=== PATIENT | female | born 1990 | race Caucasian/White ===

== ENCOUNTER → 2020-06-08 15:34 | Outpatient (CLI) | payer MEDICAID, SELFPAY ==
[2020-06-08 16:09] LABS: Basophils % 0.3 % (0.1-2.0); Eosinophils # 0.3 K/mm3 (0.0-0.4); Eosinophils % 2.3 % (0.1-12.0); Hematocrit 32.1 % (37.0-47.0); Hemoglobin 10.8 g/dL (12.2-16.2); Lymphocytes # 3.2 K/mm3 (0.7-4.5); Lymphocytes % 26.4 % (10-50); Mean Corpuscular HGB Conc 33.7 g/dL (31.8-35.4); Mean Corpuscular Hemoglobin 26.6 pg (27.0-31.2); Mean Corpuscular Volume 78.9 fl (81-99); Mean Platelet Volume 8.4 fl (7.4-10.4); Monocytes # 0.7 K/mm3 (0.1-1.0); Neutrophils # 7.8 K/mm3 (1.8-7.8); Platelet Count 336 K/mm3 (142-424); Red Blood Count 4.07 M/mm3 (4.20-5.40); Red Cell Distribution Width 13.2 % (11.5-17.5)
[2020-06-10 13:50] LABS: HIV Screen 4th Generation wRfx Non Reactive (Non Reactive); Hepatitis B Surface Antigen Negative (Negative); Hepatitis C Antibody <0.1 s/co ratio (0.0-0.9); Rapid Plasma Reagin Ab Titer Non Reactive (NonRea<1:1); Rubella Antibodies, IgG <0.90 index (Immune >0.99)
== END ==
PROVIDERS: Visit Provider Obstetrics & Gynecology
DX: Z34.90 Encounter for supervision of normal pregnancy, unspecified, unspecified trimester (principal)
CPT/HCPCS: 36415; 85025; 86592; 86703; 86762; 86850; 87340; 87380; G0432

== ENCOUNTER → 2020-06-11 12:53 | Outpatient (CLI) | payer MEDICAID, SELFPAY ==
--- NOTE | 2020-06-11 12:54 | US_ITS ---
PROCEDURE: US OB /MATERNAL DETAIL CLINICAL INDICATION: COMPARISON: No exams were available for comparison FINDINGS: There is a single live fetus present which is in cephalic presentation. The cervix is closed and measures 6 cm transabdominal. Placenta is anterior and grade 2. heart body motion noted. Complete survey performed and was unremarkable on the submitted images as in PACS. No discrete anomalies identified on survey imaging by technologist. Active fetus. Three-vessel cord with satisfactory umbilical cord insertion. 4- chamber heart noted. Survey of brain & ventricles Unremarkable. Face and neck survey unremarkable. Diaphragm and chest views unremarkable. Abdomen: Both kidneys noted and unremarkable. Stomach noted and satisfactory. Spine: Survey of the spine satisfactory with no anomalies identified nor imaged. Both arms and legs noted. Amniotic Fluid: Adequate. Maternal adnexa: No significant findings. Measurements: Average ultrasound age 33weeks 1day. Gestational Age 33weeks 1day Estimated due date by ultrasound age 1207/29/2020. Estimated weight 2,172g BPD = 32weeks 4days OFD = 35weeks 2days HC = 33weeks 5days AC = 34weeks 1day FL = 32weeks 1day Growth Percentile= % Heart Rate = 165bpm Cerebellum = Humerus = 31weeks 3days HC/AC is 1 CI is 0.74 FL/BPD is 0.76 FL/AC is 0.2 IMPRESSION: Live IUP in cephalic presentation. Average ultrasound age 33 weeks 1 day. No obvious anomalies. Please see above for detail. Dictated by: Ritesh Fernández MD 06/12/2020 10:55 Ritesh Fernández MD in OV 06/12/2020 10:55
== END ==
PROVIDERS: PCP Family Medicine; Visit Provider Obstetrics & Gynecology
DX: Z34.90 Encounter for supervision of normal pregnancy, unspecified, unspecified trimester (principal)
CPT/HCPCS: 76811

== ENCOUNTER 2020-07-15 21:13 | Inpatient (IN) | payer BC, MEDICAID, SELFPAY ==
[2020-07-15 19:30] VITALS: BP 131/69; PULSE 96; RESP 18; TEMP 36.7; O2SAT 98; BMI 26.6
[2020-07-15 19:32] VITALS: BMI 26.6
[2020-07-15 19:44] LABS: Microscopic, Urine URINE MICROSCOPIC (MICROSCOPIC)
[2020-07-15 19:45] LABS: Appearance,Urine CLEAR (Clear); Bilirubin,Urine Negative (Negative); Blood, Urine Negative (Negative); Color,Urine YELLOW (Yellow); Glucose,Urine (UA) Negative (Negative); Ketones,Urine Negative (Negative); Leukocyte Esterase,Urine Negative (Negative); Nitrate,Urine Negative (Negative); PH,Urine 5.5 (5.0-8.5); Protein,Urine Negative (Negative); Specific Gravity, Urine <= 1.005 (1.005-1.030); Urobilinogen,Urine 0.2 EU/dl (0.2)
[2020-07-15 19:57] LABS: Amphetamine/Metha Screen,Urine Negative ng/ml (<1000)
[2020-07-15 19:58] LABS: Barbiturates Screen,Urine Negative ng/ml (<200)
[2020-07-15 19:59] LABS: Benzodiazepines Screen,Urine Negative ng/ml (<200); Cannabinoid Screen,Urine Negative ng/ml (<50)
[2020-07-15 20:00] LABS: Cocaine Screen,Urine Negative ng/ml (<300); Methadone Screen,Urine Negative ng/ml (<300)
[2020-07-15 20:01] LABS: Phencyclidine Screen,Urine Negative ng/ml (<25)
[2020-07-15 20:02] LABS: Opiate Screen,Urine Negative ng/ml (<300)
[2020-07-15 22:08] LABS: Basophils % 0.3 % (0.1-2.0); Eosinophils # 0.2 K/mm3 (0.0-0.4); Eosinophils % 1.8 % (0.1-12.0); Hematocrit 33.3 % (37.0-47.0); Hemoglobin 10.8 g/dL (12.2-16.2); Lymphocytes # 3.4 K/mm3 (0.7-4.5); Lymphocytes % 26.7 % (10-50); Mean Corpuscular HGB Conc 32.4 g/dL (31.8-35.4); Mean Corpuscular Hemoglobin 24.9 pg (27.0-31.2); Mean Corpuscular Volume 76.8 fl (81-99); Mean Platelet Volume 9.4 fl (7.4-10.4); Monocytes # 0.6 K/mm3 (0.1-1.0); Monocytes % 4.8 % (1.7-9.3); Neutrophils # 8.5 K/mm3 (1.8-7.8); Neutrophils % 66.3 % (37.0-80.0); Platelet Count 346 K/mm3 (142-424); Red Blood Count 4.33 M/mm3 (4.20-5.40); Red Cell Distribution Width 13.8 % (11.5-17.5); White Blood Count 12.8 K/mm3 (4.8-10.8)
[2020-07-15 23:00] LABS: Coronavirus 19 IgG Antibody Negative (Negative); Coronavirus 19 IgM Antibody Negative (Negative)
[2020-07-16 08:13] VITALS: BP 120/65; PULSE 86; RESP 18; TEMP 36.7; O2SAT 99
--- NOTE | 2020-07-16 10:03 | HMH.OBAPHP ---
OB - H&P: HPI Antepartum - History of Present Illness Chief complaint: contractions History of present illness: 30 yo @ 38 08/20 Admitted for observation of contractions, with eventual progress from 1cm to 3cm Now admitted in labor with pitocin augmentation care limited to 2 office visits, with late initial presentation at 33 wks Has not been seen in office for many weeks, and therefore GBS status unknown Will treat with prophylactic antibiotics during labor Social work consult following delivery MMR vaccine following delivery - History of Present Criteria for establishing EDC:: based on 3rd trimester US only care: limited care - Labs Blood type: A (+) positive Rubella: nonimmune RPR/VDRL: nonreactive GBS status: unknown HBsAG: negative [facility] History I have reviewed the patient's past medical history: Yes *Have you ever received a pneumonia vaccine?: No *Have you received a flu vaccine this season?: No Other Surgeries: Yes: Dilation and Curettage. No: Amputation: No Fractures: No - *Social History Smoking Status: Current every day smoker # Packs/Day (cigarettes): 1 Alcohol Intake: never Substance Use Type: denies use *Occupational Status:: unemployed *Travel in the last 8 weeks: None Family Hx:: Cancer, Diabetes, Heart Attack, Hypertension, Hyperlipidemia, Stroke : 9 Para: 5 LMP comments: Review of Systems - Review of Systems Review of systems:: pertinent systems reviewed and negative unless documented below - *Genitourinary Reports other (contractions) Meds Home Medications Medication Instructions Recorded Confirmed Type pediatric multivitamin no.76 1 tab PO DAILY 06/08/20 07/16/20 History Allergies Allergy/AdvReac Type Severity Reaction Status Date / Time hydromorphone [From Dilaudid] Allergy Mild hives Verified 06/22/20 15:06 OB - H&P: Exam - Physical Exam Vital signs: Temp Pulse Resp BP Pulse Ox 97.9 F 64 18 131/68 99 07/16/20 12:06 07/16/20 12:06 07/16/20 12:06 07/16/20 12:06 07/16/20 08:13 - Constitutional no acute distress - Routine HEENT Exam Head: Present: normocephalic, atraumatic Eye: Absent: scleral injection ENT: Present: mucous membranes moist - Routine Neck Exam Present: supple - Routine Respiratory Exam Present: CTA bilaterally. Absent: respiratory distress - Routine Cardiovascular Exam Present: RRR - Routine Abdominal Exam Present: soft. Absent: tenderness, distended - Routine Exam Comments: cervix 3/75/-2 - Routine Extremities Exam Absent: edema - Routine Skin Exam Absent: rash - Routine Neurological Exam Present: alert, oriented X3 - Routine Psychiatric Exam Present: normal affect OB - Results - Labs Labs: Short CBC 07/15/20 Range/Units 21:34 WBC 12.8 H (4.8-10.8) K/mm3 Hgb 10.8 L (12.2-16.2) g/dL Hct 33.3 L (37.0-47.0) % Plt Count 346 (142-424) K/mm3 Urine 07/15/20 Range/Units 19:15 Urine Color Yellow (Yellow) Urine Appearance Clear (Clear) Urine pH 5.5 (5.0-8.5) Ur Specific [place] <= 1.005 (1.005-1.030) Urine Protein Negative (Negative) Urine Glucose (UA) Negative (Negative) - Imaging and Cardiology nst Status: image reviewed by me (baseline 140, normal variability, reactive. Category 1.) OB - A/P Antepartum (1) 38 weeks gestation of Status: Acute (2) Late care Status: Acute (3) Grand multiparity Status: Acute (4) Insufficient care Status: Acute (5) Active labor at term Status: Acute (6) Anemia complicating Status: Acute (7) Rubella non-immune status, antepartum Status: Acute (8) Tobacco smoking complicating Status: Acute (9) GBS screening not performed Status: Acute - Additional Plan Additional Information:: Admitted with diagnosis of active labor
[2020-07-16 12:06] VITALS: BP 131/68; PULSE 64; RESP 18; TEMP 36.6
--- NOTE | 2020-07-16 13:20 | HMH.LABNOT ---
Labor Note - Subjective: Date: 07/16/20 Time: 13:20 regular contraction - Objective: Cervical Dilation:: 3-4 Effacement:: 75% Station: -1 Membranes: artificially ruptured Comment:: AROM--clear fluid FSE placed without difficulty or complication - Fetus: monitoring type:: Internal - Assessment: Patient Problems: All Active Problems Grand multiparity (Acute) GBS screening not performed (Acute) Insufficient care (Acute) 38 weeks gestation of (Acute) Active labor at term (Acute) Anemia complicating (Acute) Rubella non-immune status, antepartum (Acute) ASCUS with positive high risk HPV (Acute) Late care (Acute) Tobacco smoking complicating (Acute) (Acute) - Plan: Comment:: Continue pitocin augmentation Epidural requested and will be placed soon continuous monitoring
--- NOTE | 2020-07-16 13:34 | P.PN_ITS ---
[facility] Anesthesia Checklist - Patient Identification Patient Identification: Arm Band - Structural Data Admitted From: Inpatient Planned Operative Procedure/s: labor epidural Consent for Planned Operative Procedure(s) Verified: Yes Verified Documents: Surgical Consent, History and Physical - NPO Status Verified Time NPO: 00:00 - Additional verifications Anesthesia Reactions: No - Airway Assessment C-Spine Mobility Assessed: Yes TMJ Mobility Assessed: Yes Dentition: Good Dentition - Neurological Assessment Level of Consciousness: Awake, Alert - Anesthesia Plan Anesthesia Risk discussed: Yes Anesthesia Plan: Verified ASA Class: II Anesthesia Type: Epidural [facility] History I have reviewed the patient's past medical history: Yes *Have you ever received a pneumonia vaccine?: No *Have you received a flu vaccine this season?: No Anesthesia experience/problems:: nac Other Surgeries: Yes: Dilation and Curettage. No: Amputation: No Fractures: No - *Social History Smoking Status: Current every day smoker # Packs/Day (cigarettes): 1 Alcohol Intake: never Substance Use Type: denies use *Occupational Status:: unemployed *Travel in the last 8 weeks: None Family Hx:: Cancer, Diabetes, Heart Attack, Hypertension, Hyperlipidemia, Stroke Para: 5 LMP comments:
[2020-07-16 15:59] VITALS: BP 129/59; PULSE 60; RESP 16; TEMP 36.7; O2SAT 98
--- NOTE | 2020-07-16 18:39 | HMH.DN ---
- Delivery Note Delivery Date:: 07/16/20 Delivery Time:: 17:02 Anesthesia Type: Epidural Was labor medically induced?: No Infant delivered prior to 39 weeks?: Yes Justification for early elective delivery:: Active Labor at 1 minute: 8 at 5 minutes: 9 Delivery Procedure:: Spontaneous vaginal delivery of liveborn female over intact perineum. Delivery uncomplicated No nuchal cord; no shoulder dystocia with delivery placed in NICOLASA with mother immediately after umbilical cord clamped/cut, with standard nursing assessment performed Apgars: 8 & 9 Placenta spontaneously expressed and examined; noted to be complete/intact. Vulva, vagina, and cervix inspected; no lacerations EBL: 200 cc All sponge/needle/instrument counts correct at conclusion of procedure Disposition: Mom/baby stable to recovery in LDRP Placental Delivery Description: Spontaneous
[2020-07-17 07:11] LABS: Hematocrit 31.1 % (37.0-47.0); Hemoglobin 9.9 g/dL (12.2-16.2)
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
--- NOTE | 2020-07-17 13:39 | P.PN_ITS ---
Internal Medicine - PN: Subj *Date: 07/17/20 *Time: 17:39 Interval history: PPD #1 No unusual complaints Tolerating regular diet Ambulating and voiding without difficulty Lochia less than menses Exam Vital signs and Labs for Last 24 Hours: Temp Pulse Resp BP Pulse Ox 98.1 F 60 16 129/59 L 98 07/16/20 15:59 07/16/20 15:59 07/16/20 15:59 07/16/20 15:59 07/16/20 15:59 Laboratory Results - last 24 hr 07/17/20 06:33: Hgb 9.9 L, Hct 31.1 L I & O for Last 24 hours: Intake & Output 07/15/20 07/16/20 07/17/20 07/18/20 11:59 11:59 11:59 11:59 Weight 165 lb Narrative: CONSTITUTIONAL: no acute distress HEENT: mucous membranes moist PULMONARY: breathing unlabored without audible wheezes CV: no tachycardia or visible JVD; normal LE peripheral pulses ABD: soft, NT/ND, no guarding : fundus firm at/below umbilicus SKIN: no visible rash or lesions EXT: 1+ edema LEs NEURO: alert/oriented, no altered mental status PSYCH: appropriate mood and demeanor without visible anxiety/depression Assessment and Plan (1) 38 weeks gestation of Status: Acute Category: Medical Code(s): Z3A.38 - 38 weeks gestation of (2) Late care Status: Acute Category: Medical Code(s): O09.30 - Supervision of with insufficient care, unspecified trimester (3) Grand multiparity Status: Acute Category: Medical Code(s): Z64.1 - Problems related to multiparity (4) Insufficient care Status: Acute Category: Medical Code(s): O09.30 - Supervision of with insufficient care, unspecified trimester (5) Active labor at term Status: Acute Category: Medical (6) Anemia complicating Status: Acute Category: Medical Code(s): O99.019 - Anemia complicating pr egnancy, unspecified trimester (7) Rubella non-immune status, antepartum Status: Acute Category: Medical Code(s): O99.891 - Other specified diseases and conditions complicating ; Z28.3 - Underimmunization status (8) Tobacco smoking complicating Status: Acute Category: Medical Code(s): O99.330 - Smoking (tobacco) complicating , unspecified trimester (9) GBS screening not performed Status: Acute Category: Medical - Assessment and plan all Dx Assessment and Plan for all problems:: Routine care Anticipate discharge home tomorrow
[2020-07-17 20:15] VITALS: BP 126/71; PULSE 83; RESP 16; TEMP 36.7; O2SAT 98
[2020-07-17 23:59] VITALS: BP 109/61; PULSE 68; RESP 16; TEMP 36.7; O2SAT 98
[2020-07-18 04:14] VITALS: BP 126/77; PULSE 71; RESP 18; TEMP 36.6; O2SAT 98
--- NOTE | 2020-07-18 08:26 | P.PN_ITS ---
Internal Medicine - PN: Subj *Date: 07/18/20 *Time: 08:26 (Day #2. The patient is afebrile. Vital signs stable. Lochia normal. Perineum healing well. Abdomen soft. Uterine fundus involuting well. Hemoglobin 9.9 g, but clinically stable. Breast-feeding. She will be discharged today.) Exam Vital signs and Labs for Last 24 Hours: Temp Pulse Resp BP Pulse Ox 97.8 F 71 18 126/77 98 07/18/20 04:14 07/18/20 04:14 07/18/20 04:14 07/18/20 04:14 07/18/20 04:14 I & O for Last 24 hours: Intake & Output 07/15/20 07/16/20 07/17/20 07/18/20 11:59 11:59 11:59 11:59 Weight 165 lb Assessment and Plan (1) 38 weeks gestation of Status: Acute Category: Medical Code(s): Z3A.38 - 38 weeks gestation of (2) Late care Status: Acute Category: Medical Code(s): O09.30 - Supervision of with insufficient care, unspecified trimester (3) Grand multiparity Status: Acute Category: Medical Code(s): Z64.1 - Problems related to multiparity (4) Insufficient care Status: Acute Category: Medical Code(s): O09.30 - Supervision of with insufficient care, unspecified trimester (5) Active labor at term Status: Acute Category: Medical (6) Anemia complicating Status: Acute Category: Medical Code(s): O99.019 - Anemia complicating , unspecified trimester (7) Rubella non-immune status, antepartum Status: Acute Category: Medical Code(s): O99.891 - Other specified diseases and conditions complicating ; Z28.3 - Underimmunization status (8) Tobacco smoking complicating Status: Acute Category: Medical Code(s): O99.330 - Smoking (tobacco) c omplicating , unspecified trimester (9) GBS screening not performed Status: Acute Category: Medical
--- NOTE | 2020-07-18 08:30 | HMH.DCSUM ---
General - General Admission date:: 07/16/20 Discharge date: 07/18/20 (This 30-year-old 9, now para 6, AB 3 white female was admitted with prodromal labor at 38-1/7 weeks. Her care had been spotty, but uneventful. She was augmented with intravenous Pitocin, and delivered vaginally on 07/16/2020 at 1702. The baby was an 8/9, 6 pound 10 ounce female , who is breast-feeding and is done well. , the patient has done well. She is eating and ambulating, and has had a bowel movement. Her lochia is normal. Her uterine fundus is involuting well. Her perineum is healing well. Hemoglobin on admission was 10.8 g; it is 9.9 g, but she is clinically stable. She is discharged home on the second day on iron and vitamins, and on Tylenol and Motrin, as needed for pain. She is Rh+. Her rubella titer is immune, and she will receive rubella vaccine prior to discharge. She is given appropriate instructions as to diet and exercise, and she is to return to Dr. Marie's office in 6 weeks for routine follow-up.) Hospital Course Rhogam Administration: Not Indicated Objective Vital signs: Temp Pulse Resp BP Pulse Ox 97.8 F 71 18 126/77 98 07/18/20 04:14 07/18/20 04:14 07/18/20 04:14 07/18/20 04:14 07/18/20 04:14 DS: Diagnosis - Discharge Diagnosis (1) 38 weeks gestation of Status: Acute (2) Late care Status: Acute (3) Grand multiparity Status: Acute (4) Insufficient care Status: Acute (5) Active labor at term Status: Acute (6) Anemia complicating Status: Acute (7) Rubella non-immune status, antepartum Status: Acute (8) Tobacco smoking complicating Status: Acute (9) GBS screening not performed Status: Acute Discharge Plan - Patient Discharge Instructions DIET: continue same diet, regular diet Additional Instructions: No heavy lifting, no strenuous activity, and NOTHING in the Vagina for 6 Weeks. Patient Instructions: Depression, Hemorrhage, DI for Pre-eclampsia, [facility] Post Discharge Instructions, Preventing the Spread of Coronavirus Discharge Instructions - Follow up Plan Follow up with: Deneen Marie MD [Staff Physician] - Disposition: Home, Self-[facility] Medications: Home Medications Medication Instructions Recorded Confirmed Type pediatric multivitamin no.76 1 tab PO DAILY 06/08/20 07/16/20 History Prescriptions/Medication Reconciliation: New Vits96/Iron Fum/Folic [ MVI w/Iron Tablet] 1 each PO 1700 tablet Continued pediatric multivitamin no.76 1 tab PO DAILY - Problem Reconciliation Problems Reviewed?: Yes
== END 2020-07-18 12:11 | disposition home or self-care (01) | DRG 807 ==
LOC: OBOUT 21:14 → OB 21:14
PROVIDERS: Admitting Provider Nurse Practitioner Obstetrics & Gynecology; PCP Family Medicine; Visit Provider Obstetrics & Gynecology
DX: O80 Encounter for full-term uncomplicated delivery (principal); Z37.0 Single live birth; Z3A.38 38 weeks gestation of pregnancy; Z23 Encounter for immunization
CPT/HCPCS: 59409; 36415; 59025; 80305; 81001; 85014; 85018; 85025; 86328; 86850; 90707; 94761; 96360; 96361; 96367; G0378; J0290; J0595

== ENCOUNTER 2022-01-07 12:57 | Emergency (ER) | payer OTHER, MEDICAID, SELFPAY ==
[2022-01-07] VITALS (8 sets, daily range): BP systolic 100–151; BP diastolic 48–91; PULSE 73–95; RESP 16–20; TEMP 36.9; O2SAT 98–100; BMI 23.8
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
--- NOTE | 2022-01-07 14:30 | PC.NURSE ---
INFORMED MD OF PT'S PAIN NO NEW ORDERS NOTED
--- NOTE | 2022-01-07 14:30 | PC.NURSE ---
Wheeled patient to bathroom and back to her room
[2022-01-07 14:31] LABS: Basophils # 0.2 K/mm3 (0-0.2); Basophils % 1.9 % (0.1-2.0); Eosinophils # 0.1 K/mm3 (0.0-0.4); Eosinophils % 0.5 % (0.1-12.0); Hematocrit 41.7 % (37.0-47.0); Lymphocytes % 18.2 % (10-50); Mean Corpuscular HGB Conc 33.5 g/dL (31.8-35.4); Mean Corpuscular Hemoglobin 27.6 pg (27.0-31.2); Mean Corpuscular Volume 82.3 fl (81-99); Mean Platelet Volume 8.6 fl (7.4-10.4); Monocytes # 0.3 K/mm3 (0.1-1.0); Monocytes % 3.2 % (1.7-9.3); Neutrophils # 8.2 K/mm3 (1.8-7.8); Neutrophils % 76.3 % (37.0-80.0); Platelet Count 293 K/mm3 (142-424); Red Blood Count 5.06 M/mm3 (4.20-5.40); Red Cell Distribution Width 14.3 % (11.5-17.5); White Blood Count 10.8 K/mm3 (4.8-10.8)
[2022-01-07 14:32] LABS: Microscopic, Urine URINE MICROSCOPIC (MICROSCOPIC)
[2022-01-07 14:37] LABS: Appearance,Urine CLEAR (Clear); Bilirubin,Urine Negative (Negative); Blood, Urine 1+ (Negative); Color,Urine YELLOW (Yellow); Glucose,Urine (UA) Negative (Negative); Ketones,Urine Negative (Negative); Leukocyte Esterase,Urine Negative (Negative); Nitrate,Urine Negative (Negative); PH,Urine 8.5 (5.0-8.5); Protein,Urine Negative (Negative); Urobilinogen,Urine 0.2 EU/dl (0.2)
[2022-01-07 14:40] LABS: Urine Pregnancy, HCG Qual. Negative (Negative)
[2022-01-07 14:41] LABS: Alanine Aminotransferase 15 U/L (12-78); Albumin Level 4.3 g/dl (3.5-5.0); Albumin/Globulin Ratio 1.5 (1.1-1.8); Alkaline Phosphatase 83 U/L (38-126); Aspartate Amino Transferase 28 U/L (14-36); Bilirubin,Total 0.2 mg/dl (0.2-1.3); Blood Urea Nitrogen 2 mg/dl (7-17); Calcium 9.6 mg/dl (8.4-10.2); Carbon Dioxide 29 mmol/L (22.0-30.0); Chloride 101 mmol/L (98-107); Creatinine Clearance Estimated 147 mL/min (50-200); Estimated Glomerular Filt Rate 118 ml/min (>60); GFR (African American) 143 ML/MIN (>60); Globulin 2.8 g/dL (1.3-3.2); Glucose 109 mg/dl (74-100); Sodium 137 mmol/L (136-145); Total Protein,Serum 7.1 g/dl (6.3-8.2)
[2022-01-07 14:45] LABS: HCG Qualitative, Serum Negative (Negative)
[2022-01-07 14:52] LABS: RBC,Urine Occasional #/hpf (0-3)
== END 2022-01-07 17:21 | disposition home or self-care (01) ==
PROVIDERS: Emergency Provider Student in an Organized Health Care Education/Training Program; PCP Family Medicine
DX: S39.012A Strain of muscle, fascia and tendon of lower back, initial encounter (principal); K52.9 Noninfective gastroenteritis and colitis, unspecified; V43.52XA Car driver injured in collision with other type car in traffic accident, initial encounter; Z88.5 Allergy status to narcotic agent
CPT/HCPCS: 72128; 72131; 72170; 73502; 74177; 80053; 81001; 81025; 84703; 85025; 96374; 99284; Q9967